=== PATIENT | female | born 1965 | race Caucasian/White ===

== ENCOUNTER 2016-05-03 11:14 | Outpatient (CLI) | payer MEDICARE ==
[~2016-05-03] VITALS: Ht 165.1 cm; Wt 75.9 kg
--- NOTE | ~2016-05-03 | HEMODYNAMI ---
PATIENT:EDY ANDERS MEDICAL RECORD: [id number] : 61 LOCATION:SULEMAN ADMISSION DATE: 05/03/16 Generatedon:05/03/201616:23 Patient name: EDY ANDERS Patient #: [id number] SSN: : 1965 Date of study: 05/03/2016 Page: Of Hemodynamic Procedure Report Patient Data Patient Demographics Procedure consent was obtained First Name: EDY Gender: Female Last Name: CHAGO : 1965 [facility] Initial: LORENA Age: 51 year(s) Patient #: [id number] Race: Unknown Additional ID: [id number] Contact details Address: [address] [place] [address] [address] State: [place] City: [place] Zip code: [address] Past Medical History Allergies Allergen Reaction Date Comments Reported Aspirin 05/03/2016 NSAIDs 05/03/2016 Admission Admission Data Admission Date: 05/03/2016 Admission Time: 11:14 Height (in.): 65 BSA: 1.83 (m2) Height (cm.): 165.1 BMI: 27.79 (kg/m2) Weight (lbs.): 167 Weight (kg.): 75.75 Procedure Procedure Types Cath Procedure Peripheral Cath Diagnostic Procedure Cath Peripheral Abd/Extremity Visceral/Mesenteric Mesenteric Arteriogram (Abd Artery) Procedure Description Procedure Date Procedure Date: 05/03/2016 Procedure Start Time: 15:16 Procedure Staff Name Function Elvis David MD Performing Physician Alpesh Clay RT Scrub Haven Forte RN Nurse Rossana Dorantes RT Assessment Counselor Rossana Dorantes RT Monitor Attila Rainey MD Additional personnel Procedure Data Cath Procedure Fluoroscopy Diagnostic fluoroscopy Total fluoroscopy Time: 13 time: 13 min min Diagnostic fluoroscopy Total fluoroscopy dose: dose: 2014.86 mGy 2014.86 mGy Contrast Material Contrast Material Type Amount (ml) Isovue 300 85 Entry Location Entry Primary Successful Side Size Upsize Upsize Entry Closure Succes sful Closure Location (Fr) 1 (Fr) 2 (Fr) Remarks Device Remarks Femoral Right 5 Fr artery Femoral Mynx artery Clinical Partner 6Fr/7Fr Diagnostic catheters Device Type Used For End Catheter Placement Merit Impress 5Fr SIM 1 Catheter Procedure Medications Medication Administration Route Dosage Heparin Flush Bag added to field 3 bags (1000units/500ml NS) Lidocaine 1% added to field 20 Hemodynamics Rest BSA: 1.83 (m2) O2 Consumption: Estimated: 178.44 (ml/min) O2 Consumption indexed : Estimated:97.51 (ml/min/m) Heart Rate: 72 (bpm) Snapshots Pre Cath Intra NCS Post Cath Vital Signs Time Heart Resp SPO2 NIBP (mmHg) Rhythm Pain Sedation Rate (ipm) (%) Status Level (bpm) 14:54:30 70 21 98 120/99(119) NSR 0 (11) 10(A) , No pain 14:59:23 80 31 99 115/75(91) NSR 0 (11) 10(A) , No pain 15:03:27 70 17 99 103/77(96) NSR 0 (11) 10(A) , No pain 15:08:22 76 14 98 117/65(94) NSR 0 (11) 10(A) , No pain 15:12:38 73 13 96 114/64(86) NSR 0 (11) 10(A) , No pain 15:16:46 77 21 95 113/65(82) NSR 0 (11) 10(A) , No pain 15:20:56 76 10 96 114/64(82) NSR 0 (11) 10(A) , No pain 15:25:04 68 20 94 109/65(89) NSR 0 (11) 10(A) , No pain 15:29:11 75 24 90 108/60(79) NSR 0 (11) 10(A) , No pain 15:33:19 69 22 96 108/60(76) NSR 0 (11) 10(A) , No pain 15:37:29 70 12 97 109/60(78) NSR 0 (11) 10(A) , No pain 15:41:39 74 24 96 103/58(78) NSR 0 (11) 10(A) , No pain 15:45:45 78 21 96 111/58(91) NSR 0 (11) 10(A) , No pain 15:49:53 72 22 96 101/60(78) NSR 0 (11) 10(A) , No pain 15:53:59 74 20 96 106/60(76) NSR 0 (11) 10(A) , No pain 15:58:08 73 21 96 103/54(74) NSR 0 (11) 10(A) , No pain 16:02:16 73 22 96 106/57(75) NSR 0 (11) 10(A) , No pain 16:06:24 71 22 96 103/60(74) NSR 0 (11) 10(A) , No pain 16:10:30 73 23 96 100/61(75) NSR 0 (11) 10(A) , No pain 16:14:36 70 22 96 106/60(79) NSR 0 (11) 10(A) , No pain 16:18:47 89 19 97 109/55(93) NSR 0 (11) 10(A) , No pain 16:22:53 75 13 96 119/69(89) NSR 0 (11) 10(A) , No pain Medications Time Medication Route Dose Verified Delivered Reason Notes Effe ctiveness by by 14:58:30 Heparin Flush added 3 Haven Haven used for Bag to bags Jann Jann procedure (1000units/500ml field RN RN NS) 15:00:10 Lidocaine 1% added 20ml Haven Haven used for to vial Jann Jann procedure field RN administrative services officer Log Time Note 14:44:35 Patient Height : 65 inches 14:44:43 Patient Weight : 167 lbs 14:45:35 Time tracking: Regular hours 14:45:50 Plan of Care:Hemodynamics will remain stable., Cardiac rhythm will remain stable., Comfort level will be maintained., Respiratory function will remain adequate., Patient/ family verbilizes understanding of procedure., Procedure tolerated without complication., Recovers from procedure without complications.. 14:45:57 Patient received from Outpatients to IR Alert and oriented. Tansferred to table in Supine position. 14:45:59 Correct patient and procedure confirmed by team. 14:46:01 Signed procedure consent form obtained from patient. 14:51:06 - 14:51:10 Use device set IR Diagnostic 14:51:11 Sterile Angiographic Pack opened to sterile field. 14:51:13 Bag Decanter opened to sterile field. 14:51:14 Acist Manifold opened to sterile field. 14:51:15 Acist Hand Control opened to sterile field. 14:51:16 Acist Syringe opened to sterile field. 14:51:28 TUBING, CONTRAST INJCTN HI PRES opened to sterile field. 14:52:55 Micropuncture VSI 4FR kit opened to sterile field. 14:52:56 gloStreamSON 145cm guide wire opened to sterile field. 14:53:34 ECG and BP/O2 sat monitors applied to patient. 14:53:36 Vital chart was started 14:53:49 Baseline sample Acquired. 14:53:52 Full Disclosure recording started 14:53:54 - 14:54:02 H&P Date Dictated: 05/03/2016 Within 30 days and on chart.. 14:54:03 Pre-procedure instructions explained to patient. 14:54:04 Pre-op teaching completed and patient verbalized understanding. 14:54:06 Family in waiting room. 14:54:08 Patient NPO since Midnight. 14:54:25 Patient allergic to Aspirin 14:54:35 Patient allergic to NSAIDs 14:54:45 Is the patient allergic to Iodine/contrast media? No. 14:54:50 - 14:55:35 see anesthesia notes for monitoring of patient during procedure 14:55:45 - 14:55:45 - 14:55:54 [facility] [place] 5FR Sheath opened to sterile field. 14:56:21 A Strikeface 5Fr SIM 1 Catheter was advanced over the wire and used for . 14:58:30 Heparin Flush Bag (1000units/500ml NS) 3 bags added to field was given by Haven Forte RN; used for procedure; 15:00:10 Lidocaine 1% 20ml vial added to field was given by Haven Forte RN; used for procedure; 15:10:18 IV patent on arrival in left forearm with 0.9% NaCl at [facility]. 15:10:45 Physician arrived 15:11:50 --------ALL STOP TIME OUT------ 15:11:51 Final Timeout: patient, procedure, and site verified with staff and physician. All members of the team are in agreement. 15:12:38 Physical assessment completed. ASA score P 3 - A patient with severe systemic disease as per Elvis David MD. 15:12:48 Physical assessment completed. ASA score P 3 - A patient with severe systemic disease as per Attila Rainey MD. 15:13:14 Sedation plan: TIVA Propofol 15:16:02 Procedure started. 15:16:07 Local anesthetic to right femoral artery with Lidocaine 1% by Elvis David MD.INITIAL ACCESS ONLY 15:17:30 Arterial access obtained using ultrasound guidance. 15:18:55 A 5 Fr sheath was inserted into the Right Femoral artery 15:19:10 Broadband Voice SUSANNE 1 6FR. Guide sheath opened to sterile field. 15:21:28 [facility] 260 .035 glide wire opened to sterile field. 15:23:05 Terumo 5FR COBRA 65CM glide catheter opened to sterile field. 15:24:14 Cook TREJO 180 guide wire opened to sterile field. 15:30:40 Terumo ANGLE 180L glide wire opened to sterile field. 15:37:29 Copilot Bleedback Control Valve opened to sterile field. 15:38:27 Direxion [place] Microcatheter opened to sterile field. 15:40:06 [place] [facility] TRANSEND STEERABLE guide wire opened to sterile field. 16:03:48 [place] [facility] INTERLOCK 8mm X 20cm coil opened to sterile field. Lot#[id number] 16:06:49 [place] [employer] INTERLOCK 8mm X 20cm coil opened to sterile field. Lot#[id number] 16:14:15 [facility] [place] 6Fr sheath opened to sterile field. 16:16:15 MYNX RETAIL DEPARTMENT SUPERVISOR 6FR/7FR opened to sterile field. 16:17:00 A sheath was inserted into the Femoral artery 16:17:00 Sheath removed intact; hemostasis achieved with Mynx Clinical Partner 6Fr/7Fr to th e Femoral artery. 16:17:20 Procedure ended.(Physican Out) 16:17:41 Fluoroscopy time 13.00 minutes. 16:18:11 Flurop Dose total: 86 16:18:11 Fluoroscopy dose: 2013.86 mGy 16:18:19 Contrast amount:Isovue 300 85ml. 16:18:22 Sharps counted by scrub and verified by R.N. 16:18:24 Procedure and supply charges have been captured, reviewed, submitted an d are correct. 16:21:56 End room use (Document Last) 16:23:55 Vital chart was stopped Device Usage Item Name Manufacture Quantity Catalog Hospital Part Current [facility] l Lot# / Number Charge Number Stock Stock Serial# Code Sterile Cardinal 1 [id number] 5 Angiographic Health Pack Bag Decanter Microtek 1 2001S [id number] 17148 949430 5 Medical Inc. Acist Acist 1 34245 767302 241964 600468 5 Manifold Medical Systems Inc Acist Hand Acist 1 16023 187360 416469 412404 5 Control Medical Systems Inc Acist Syringe Acist 1 50252 731897 094747 727987 20 Medical Systems Protean Electric TUBING, Merit 1 [id number] 170476 837072 508793 5 CONTRAST Medical INJCTN HI PRES Micropuncture VSI VASCULAR 1 [id number] 369505 971395 5 VSI 4FR kit SOLUTIONS [facility] 1 [id number] 006329 306334 [id number] guide wire [address] [place] [address] [facility] [place] 1 467910 684530 705738 5 [id number] Sheath Merit Impress Merit 1 [id number] 505658 284087 381140 5 5Fr SIM 1 Medical Catheter Cook SUSANNE 1 [facility] 1 [id number] 381975 209495 5 6FR. Guide sheath [facility] 1 F89404 357399 997066 5 [id number] ROADRUNNER 260 .035 glide wire Terumo 5FR Terumo 1 CG502 216320 156996 5 COBRA 65CM glide catheter Cook [facility] 1 [id number] 818345 830579 5 180 guide wire Terumo ANGLE Terumo 1 AE1374 268691 046819 558397 5 180L glide wire Copilot Cohn 1 [id number] 387184 792048 798757 5 Bleedback Vascular Control Valve Direxion [place] 1 [id number] 083161 590668 020080 5 Microcatheter Scientific [facility] [facility] [place] 1 [id number] 049759 538166 5 TRANSEND Scientific STEERABLE guide wire [facility] [place] 2 [id number] 719767 145248 5 INTERLOCK 10 [address] [place] [address] [facility] [place] 1 916738 797412 521441 5 [id number] sheath MYNX RETAIL DEPARTMENT SUPERVISOR Access 1 [id number] 137596 984165 5 [id number] 6FR/7FR Closure Signature Audit [place] Stage Time Signature Unsigned Intra-Procedure 05/03/2016 Rossana Dorantes 4:23:53 PM RT(R) Signatures Monitor : Rossana Dorantes RT Signature : Date : Time : [facility] [address] [place] [address]
[~2016-05-03 11:14] MED LIST: AMOXICILLIN875 MG PO; AUGMENTIN 875-11 TAB PO; CALCIUM 500 + D1 TAB PO; HYDROCODON-ACE1 EAC7 PO; HYDROCODONE-APA1 TAB PO; IRON; MIRAPEX0.25 MG PO; NEFAZODONE HCL150 MG PO; OMEPRAZOLE40 MG PO; PEPCID40 MG PO; SLOW RELEASE I160 MG PO; TYLENOL W/CODEI1 TAB PO; VITAMIN C; XARELTO20 MG PO; ZOLOFT100 MG PO
[2016-05-03] MEDS ORDERED: CLARITIN 10 MG10 MG PO (12:17)
[2016-05-03] MEDS ORDERED: PEPCID40 MG PO (12:18)
[2016-05-03] MEDS ORDERED: FLUTICASONE PRO16 GM NASAL (12:18)
[2016-05-03] MEDS ORDERED: STOOL SOFTENER100 M1 PO (12:18)
[2016-05-03 12:29] VITALS: BP 113/51; Ht 165.1 cm; Wt 75.9 kg
[2016-05-03 12:35] LABS: INR 0.98 (0.85-1.17); PROTIME 12.8 SECONDS (11.6-15.0)
[2016-05-03 12:45] LABS: ANION GAP 13.2 mmol/L (8-16); BASOPHILS 0.3 % (0.0-2.0); CALCIUM 9.2 mg/dL (8.5-10.1); CARBON DIOXIDE 26.5 mmol/L (21.0-32.0); CREATININE - SERUM 0.9 mg/dL (0.6-1.3); EOSINOPHILS 2.1 % (0-7); HEMATOCRIT 37.3 % (36.0-48.0); HEMOGLOBIN 12.3 g/dL (12-16); LYMPHOCYTES 23.1 % (15-50); MEAN PLATELET VOLUME 10.5 fL (7.4-10.4); MONOCYTES 5.4 % (2-11); NEUTROPHILS 69.1 % (40-80); POTASSIUM - SERUM 3.7 mmol/L (3.5-5.1); RBC 3.97 10x6/uL (4.00-5.40); RDW 13.8 % (11.5-14.5); WBC 3.7 10x3/uL (4.8-10.8)
[2016-05-03 12:45] LABS: HCG URINE NEGATIVE (NEGATIVE)
[2016-05-03 12:55] LABS: PLATELET COUNT 90 10x3/uL (130-400)
[2016-05-03 13:08] LABS: PLATELET ESTIMATE DECREASED
--- NOTE | 2016-05-03 18:00 | NUR ---
VS TAKEN AND PLACE ON POST OP SHEET
--- NOTE | 2016-05-03 19:59 | NUR ---
IV DC WITH CATHER TIP INTACT
== END 2016-05-03 20:49 | disposition home or self-care (01) ==
LOC: D.OPS 11:14 → D.SP 13:00 → D.OPS 20:49
PROVIDERS: Radiology Diagnostic Radiology
DX: I72.8 Aneurysm of other specified arteries (principal); I77.4 Celiac artery compression syndrome

== ENCOUNTER → 2016-10-11 10:16 | Outpatient (CLI) | payer MEDICARE ==
[2016-05-03 12:29] VITALS: BMI 27.8
[~2016-10-11 10:16] MED LIST changes: +CLARITIN 10 MG10 MG PO; +FLUTICASONE PRO16 GM NASAL; +STOOL SOFTENER100 M1 PO
== END | disposition home or self-care (01) ==
LOC: D.CT 09:30
DX: I72.8 Aneurysm of other specified arteries (principal)

== ENCOUNTER → 2017-11-10 09:42 | Outpatient (CLI) | payer MEDICARE ==
[2016-05-03 12:29] VITALS: BMI 27.8
== END | disposition home or self-care (01) ==
LOC: D.CT 09:42
DX: I72.8 Aneurysm of other specified arteries (principal)